=== PATIENT | female | born 1955 | race African-American/Black ===

== ENCOUNTER 2017-09-22 02:57 | Inpatient (IN) | payer OTHER ==
[~2017-09-22] VITALS: Ht 154.9 cm; Wt 48.8 kg
--- NOTE | 2017-09-22 03:10 | NUR ---
TELE/RN NOTES RECEIVED PT. FROM [facility] VIA [employer]. PT. IS AWAKE, ALERT AND ORIENTED X3. BREATHING EVEN AND UNLABORED ON ROOM AIR. NO SOB, RESPIRATORY DISTRESS OR COMPLAINTS OF PAIN NOTED AT THIS TIME.PT. DENIES FEELING LIGHTHEADED OR DIZZY AT THIS TIME. ORIENTED PT. TO ROOM. PLACED EXTERNAL DIRECTOR OF PUBLIC SAFETY ON PT. CURRENT RHYTHM = SINUS RHYTHM HR 72. PT. WITH LEFT AC 18 GAUGE IV SALINE LOCK PRESENT, PATENT AND INTACT. WILL CALL [facility] DIRECTOR DESIGN TO NOTIFY THAT PT. IS HERE AND AWAIT ADMITTING ORDERS. BED LOCKED AND IN LOWEST POSITION, SIDE RAILS UP X2, BED ALARM ON, CALL LIGHT WITHIN REACH, WILL CONTINUE TO MONITOR.
--- NOTE | 2017-09-22 03:15 | NUR ---
TELE/RN NOTES PT. REFUSING BODY CHECK. PT. STATES SHE HAS NO OPEN WOUNDS AND DOES NOT WANT A BODY CHECK. WILL ATTEMPT BODY CHECK AGAIN AT A LATER TIME. WILL CONTINUE TO MONITOR.
--- NOTE | 2017-09-22 03:45 | NUR ---
TELE/RN NOTES CALLED [facility] [employer]ATER [employer] PAPER SERVICE TO NOTIFY DR. HILLS THAT PT. ARRIVED. MD WAS PAGED AND DID NOT ANSWER, WILL AWAIT FOR MD TO CALL BACK. WILL CONTINUE TO MONITOR.
--- NOTE | 2017-09-22 03:56 | NUR ---
TELE/RN NOTES SPOKE WITH [facility] RAILCAR BRAKE OPERATOR DR. HILLS. NOTIFIED HIM OF PT. ARRIVAL AND PER PT. TAKES NO HOME MEDICATIONS. PT. VITAL SIGNS STABLE. PT. DENIES FEELING LIGHTHEADED OR DIZZY AT THIS TIME. PER DR. HILLS NEW ORDERS: ADMIT TO TELE FOR SYNCOPE, CBC AND BMP IN AM, START IV NORMAL SALINE @ 100ML/HR. WILL CARRY OUT ORDERS. WILL CONTINUE TO MONITOR.
[2017-09-22 04:00] VITALS: BP 104/72
[2017-09-22] MEDS ORDERED: IV NS 0.9% 1,000 ML BAG IV PRN (04:00)
--- NOTE | 2017-09-22 04:45 | NUR ---
TELE/RN NOTES SPOKE WITH [facility] PROGRAM DIRECTOR AIR TALENT DR. HILLS TO CLARIFY PT. DIET ORDER. PER DR. HILLS NEW ORDER: REGULAR DIET. WILL CARRY OUT ORDER. WILL CONTINUE TO MONITOR.
--- NOTE | 2017-09-22 06:09 | NUR ---
TELE/RN NOTES PT. IS LYING IN BED RESTING. BREATHING EVEN AND UNLABORED ON ROOM AIR. NO SOB, RESPIRATORY DISTRESS OR COMPLAINTS OF PAIN NOTED AT THIS TIME. PT. WITH EXTERNAL GUEST SERVICE TEAM LEADER ON CURRENT RHYTHM = SINUS RHYTHM HR 60. PT. WITH LEFT AC 18 GAUGE PERIPHERAL IV PRESENT, PATENT AND INTACT ADMINISTERING TO PT. NS @ 100ML/HR. ALL PT. NEEDS MET. BED LOCKED AND IN LOWEST POSITION, SIDE RAILS UP X2, BED ALARM ON, CALL LIGHT WITHIN REACH, WILL ENDORSE TO DAYSHIFT NURSE FOR CONTINUITY OF CARE.
[2017-09-22 06:46] LABS: BASOPHILS % (AUTO) 0.5 % (0.0-2.0); EOSINOPHILS % (AUTO) 0.7 % (0.0-6.0); HEMATOCRIT 35 % (33-45); HEMOGLOBIN 11.3 g/dL (11.5-14.8); LYMPHOCYTES % (AUTO) 36.3 % (20.0-44.0); MEAN CORPUSCULAR HEMOGLOBIN 27 PG (26.0-33.0); MEAN CORPUSCULAR HGB CONC 33 g/dl (31.0-36.0); MEAN CORPUSCULAR VOLUME 82 fL (82-100); MONOCYTES # (AUTO) 0.5 /CMM (0.1-1.30); MONOCYTES % (AUTO) 9.8 % (2.0-12.0); NEUTROPHILS # (AUTO) 2.9 /CMM (1.8-8.9); NEUTROPHILS % (AUTO) 52.7 % (43.0-81.0); PLATELET COUNT (AUTO) 159 /CMM (150-450); RDW COEFFICIENT OF VARIATION 14.5 (11.5-15.0); RED BLOOD CELL COUNT(AUTO) 4.21 MIL/uL (4.0-5.2); WHITE BLOOD COUNT (AUTO) 5.4 K/uL (4.3-11.0)
[2017-09-22] MEDS ORDERED: IV NS 0.9% 1,000 ML IV PRN (07:30)
--- NOTE | 2017-09-22 07:30 | NUR ---
TELE/RN OPENING NOTE PATIENT RECEIVED IN BED ALERT AND ORIENTED X4. RESPIRATION REGULAR AND UNLABORED. DENIES SOB, PAIN AT THIS TIME. ON TELE WITH SINUS BRADYCARDIA AT 59. IN NO APPARENT DISTRESS. LAC G18 PATENT AND IV INFUSING WITH NO S/SX INFILTRATION. SIDE RAIL X2 UP. BED LOW AND LOCKED. CALL LIGHT WITHIN REACH. WILL CONTINUE TO MONITOR.
[2017-09-22 07:42] LABS: CALCIUM, SERUM 9.5 mg/dL (8.5-10.1); CREATININE 1.8 mg/dL (0.6-1.3); POTASSIUM 3.9 mmol/L (3.5-5.1)
[2017-09-22 08:00] VITALS: BP 101/72
[2017-09-22 10:22] LABS: IRON, SERUM 47 ug/dl (50-175); TOTAL IRON BINDING CAPACITY 249 ug/dl (250-450)
--- NOTE | 2017-09-22 10:30 | NUR ---
TELE/RN SKIN ASSESSMENT SKIN ASSESSMENT DONE EXCEPT HEAD. PATIENT REFUSED TO REMOVE HER WIG FOR SKIN ASSESSMENT DESPITE EXPLAINING RISKS AND BENEFITS X3.
[2017-09-22 10:36] LABS: CHOLESTEROL 165 mg/dL (<200); FERRITIN 271 ng/mL (8-388); HDL CHOLESTEROL 49 mg/dL (40-60); LDL 106 mg/dL (0-99); THYROID STIMULATING HORMONE 0.976 uIU/mL (0.358-3.74); TRIGLYCERIDES 80 mg/dL (30-150)
[2017-09-22 10:54] LABS: MAGNESIUM 1.6 mg/dL (1.8-2.4)
[2017-09-22 11:32] LABS: TROPONIN I < 0.017 ng/mL (0.00-0.056)
[2017-09-22 16:00] VITALS: BP 105/72
[2017-09-22] MEDS ORDERED: MAGNESIUM OXIDE 400 MG TABLET PO ONE (17:00)
[2017-09-22] MEDS: IV NS 0.9% 1,000 ML IV PRN (17:26)
[2017-09-22 17:51] LABS: ALBUMIN 3.1 g/dL (3.4-5.0); BILIRUBIN,DIRECT 0.2 mg/dL (0.0-0.2); BILIRUBIN,TOTAL 0.4 mg/dL (0.2-1.0); TOTAL PROTEIN, SERUM 6.4 g/dL (6.4-8.2)
--- NOTE | 2017-09-22 19:03 | NUR ---
CLOSING NOTE PATIENT IN BED AWAKE. ALERT AND ORIENTED X4. RESPIRATION REGULAR AND UNLABORED. DENIES SOB, PAIN. IN NO APPARENT DISTRESS. LAC G18 PATENT AND IV INFUSING WELL. SIDE RAIL UP X2. BED LOW AND LOCKED. CALL LIGHT WITHIN REACH. WILL ENDORSE TO NEWSPAPER CLIPPER.
--- NOTE | 2017-09-22 19:15 | NUR ---
MS/RN NOTES RECEIVED PT. SITTING UP IN BED AWAKE, ALERT AND ORIENTED X3. BREATHING EVEN AND UNLABORED ON ROOM AIR. NO SOB, RESPIRATORY DISTRESS OR COMPLAINTS OF PAIN NOTED AT THIS TIME. PT. WITH LEFT AC 18 GAUGE PERIPHERAL IV PRESENT, PATENT AND INTACT ADMINISTERING TO PT. NS @ 75ML/HR. BED LOCKED AND IN LOWEST POSITION, SIDE RAILS UP X2, BED ALARM ON, CALL LIGHT WITHIN REACH, WILL CONTINUE TO MONITOR.
[2017-09-22 19:54] LABS: APPEARANCE,URINE SL CLOUDY (CLEAR); BILIRUBIN,URINE NEGATIVE (NEGATIVE); BLOOD, URINE NEGATIVE Ery/uL (NEGATIVE); COLOR,URINE YELLOW (YELLOW); KETONES,URINE NEGATIVE (NEGATIVE); LEUKOCYTE ESTERASE ,URINE 2+ (NEGATIVE); NITRITE, URINE NEGATIVE (NEGATIVE); PH,URINE 5.5 (5.0-8.0); PROTEIN,URINE NEGATIVE (NEGATIVE); UGLUCOSE NEGATIVE (NEGATIVE); UROBILINOGEN,URINE 0.2 EU/dL (0.2)
[2017-09-22 19:56] LABS: BACTERIA,URINE Few /HPF (None Seen); SQUAMOUS EPITHELIAL CELL,UR Moderate /HPF (None Seen); WBC,URINE 21-50 /HPF (0-3)
[2017-09-22 20:00] VITALS: BP 101/62
--- NOTE | 2017-09-22 21:11 | NUR ---
MS/RN NOTES NOTIFIED [facility] DISCHARGE SPECIALIST DR. HILLS PT. URINALYSIS RESULTED WITH WBC 21-50. PT. IS NOT CURRENTLY RECEIVING ANY ANTIBIOTICS. PER DR. HILLS NEW ORDER: ROCEPHIN 1 GRAM IVPB DAILY. WILL CARRY OUT ORDER. WILL CONTINUE TO MONITOR.
[2017-09-22] MEDS ORDERED: CEFTRIAXONE 1 G VIAL ONE (21:53)
[2017-09-22] MEDS: CEFTRIAXONE 1 G in IV D5W 50 ML IV SCH (22:38)
--- NOTE | 2017-09-23 06:30 | NUR ---
MS/RN NOTES PT. IS LYING IN BED RESTING. BREATHING EVEN AND UNLABORED ON ROOM AIR. NO SOB, RESPIRATORY DISTRESS OR COMPLAINTS OF PAIN NOTED AT THIS TIME. PT. WITH LEFT AC 18 GAUGE PERIPHERAL IV PRESENT, PATENT AND INTACT ADMINISTERING TO PT. NS @ 75ML/HR. ALL PT. NEEDS MET. ALL DUE MEDICATIONS GIVEN. BED LOCKED AND IN LOWEST POSITION, SIDE RAILS UP X2, BED ALARM ON, CALL LIGHT WITHIN REACH, WILL ENDORSE TO DAYSHIFT NURSE FOR CONTINUITY OF CARE.
[2017-09-23 07:14] LABS: ALBUMIN 2.8 g/dL (3.4-5.0); BILIRUBIN,TOTAL 0.3 mg/dL (0.2-1.0); CALCIUM, SERUM 8.6 mg/dL (8.5-10.1); CREATININE 1.4 mg/dL (0.6-1.3); MAGNESIUM 1.4 mg/dL (1.8-2.4); PHOSPHORUS 2.1 mg/dL (2.5-4.9); POTASSIUM 3.4 mmol/L (3.5-5.1); TOTAL PROTEIN, SERUM 5.8 g/dL (6.4-8.2)
[2017-09-23 07:43] LABS: BASOPHILS % (AUTO) 0.6 % (0.0-2.0); EOSINOPHILS # (AUTO) 0.1 /CMM (0.0-0.7); EOSINOPHILS % (AUTO) 1.1 % (0.0-6.0); HEMATOCRIT 32 % (33-45); HEMOGLOBIN 10.5 g/dL (11.5-14.8); LYMPHOCYTES # (AUTO) 1.7 /CMM (0.8-4.8); LYMPHOCYTES % (AUTO) 33.1 % (20.0-44.0); MEAN CORPUSCULAR HEMOGLOBIN 27 PG (26.0-33.0); MEAN CORPUSCULAR HGB CONC 33 g/dl (31.0-36.0); MEAN CORPUSCULAR VOLUME 82 fL (82-100); MONOCYTES # (AUTO) 0.5 /CMM (0.1-1.30); MONOCYTES % (AUTO) 9.1 % (2.0-12.0); NEUTROPHILS # (AUTO) 2.9 /CMM (1.8-8.9); NEUTROPHILS % (AUTO) 56.1 % (43.0-81.0); PLATELET COUNT (AUTO) 136 /CMM (150-450); RDW COEFFICIENT OF VARIATION 14.8 (11.5-15.0); RED BLOOD CELL COUNT(AUTO) 3.87 MIL/uL (4.0-5.2); WHITE BLOOD COUNT (AUTO) 5.1 K/uL (4.3-11.0)
[2017-09-23 08:00] VITALS: BP_SYST 93; BP_DIAS 63; BP_DIAS 69
--- NOTE | 2017-09-23 08:15 | NUR ---
RN INITIAL NOTES Received pt sitting upright in bed. a/o x4, respirations are even and unlabored, not in any acute distress noted. Pt denies any pain at this time. Bilateral soda flaker are equal. IV to LAC was leaking. Will insert a new peripheral IV. Pt was seen and examined by Dr. Contreras with orders for am labs and orthostatics. Pt reports slight dizziness. Reminded pt to use the call light when assistance is needed. Reeducated pt, prior to getting up and out of bed, to sit at the edge of the bed and dangle feet to prevent orthostatic hypotension. Pt able to verbalize back. Call light left within reach.
--- NOTE | 2017-09-23 08:22 | NUR ---
RN NOTES Orthostatic Laying: BP 93/69 P70 R 18 T98.3 SPO2 99% RA Sitting: BP 105/72 P64 R18 T98.3 SPO2 99% RA Standing: BP 108/72 P66 R18 T98.2 SPO2 99%
[2017-09-23] MEDS: NEUTRA PHOS 1 POWD.PACKET PO SCH ×2 (08:55→16:05)
[2017-09-23] MEDS: Magnesium 1GM/D5W 100ML PREMIX 100 ML IV SCH ×2 (08:55→11:07)
[2017-09-23] MEDS: IV NS 0.9% 1,000 ML IV PRN (08:58)
[2017-09-23] MEDS ORDERED: POTASSIUM CHLORIDE 20 MEQ TAB.PRT.SR PO ONE (10:00)
[2017-09-23 16:00] VITALS: BP 113/81
--- NOTE | 2017-09-23 19:30 | NUR ---
RN OPEN NOTES RECEIVED PATIENT AWAKE IN BED. A/O X4. NO SIGNS OF DISTRESS OR DISCOMFORT. BREATHING EVEN AND UNLABORED. IV ACCESS IN RFA WITH NS INFUSING, PATENT AND INTACT, NO SIGNS OF REDNESS OR INFILTRATION. BED IN LOW LOCKED POSITION WITH SIDE RAILS X2. CALL LIGHT WITHIN REACH. WILL CONTINUE TO MONITOR.
--- NOTE | 2017-09-23 19:49 | NUR ---
RN CLOSING NOTES all due meds given, needs met and rendered. A/o x4, respirations are even and unlabored, not in any acute distress noted. Denies any pain or discomfort. RFA IV is intact, patent. DRessing kept clean and dry. Magnesium replace x2 done and on conntinuous fluid at 75cc/hr. Pt is ambulatory with assist, able to reposition self q2hrs. Reminded pt to use the call light when assistance is needed. Call light is left within reach. Endorsed to next shift for continuity of care.
[2017-09-23 20:00] VITALS: BP 103/69
[2017-09-23] MEDS: CEFTRIAXONE 1 G in IV D5W 50 ML IV SCH (21:36)
[2017-09-24] MEDS: IV NS 0.9% 1,000 ML IV PRN (06:36)
--- NOTE | 2017-09-24 06:41 | NUR ---
RN CLOSING NOTES PATIENT AWAKE IN BED. A/O X4. NO SIGNS OF DISTRESS OR DISCOMFORT. BREATHING EVEN AND UNLABORED. IV ACCESS IN RFA WITH NS INFUSING, PATENT AND INTACT, NO SIGNS OF REDNESS OR INFILTRATION. ALL NEEDS MET. NO SIGNIFICANT CHANGES THROUGH THE NIGHT. BED IN LOW LOCKED POSITION WITH SIDE RAILS X2. CALL LIGHT WITHIN REACH. WILL ENDORSE TO AM SHIFT FOR SANDRA.
[2017-09-24 06:43] LABS: BASOPHILS % (AUTO) 0.5 % (0.0-2.0); EOSINOPHILS # (AUTO) 0.1 /CMM (0.0-0.7); EOSINOPHILS % (AUTO) 1.4 % (0.0-6.0); HEMATOCRIT 33 % (33-45); HEMOGLOBIN 10.5 g/dL (11.5-14.8); LYMPHOCYTES # (AUTO) 1.7 /CMM (0.8-4.8); MEAN CORPUSCULAR HEMOGLOBIN 26 PG (26.0-33.0); MEAN CORPUSCULAR HGB CONC 32 g/dl (31.0-36.0); MEAN CORPUSCULAR VOLUME 82 fL (82-100); MONOCYTES # (AUTO) 0.5 /CMM (0.1-1.30); MONOCYTES % (AUTO) 11.4 % (2.0-12.0); NEUTROPHILS # (AUTO) 2.4 /CMM (1.8-8.9); NEUTROPHILS % (AUTO) 50.7 % (43.0-81.0); PLATELET COUNT (AUTO) 145 /CMM (150-450); RDW COEFFICIENT OF VARIATION 15.2 (11.5-15.0); WHITE BLOOD COUNT (AUTO) 4.7 K/uL (4.3-11.0)
[2017-09-24 07:12] LABS: ALBUMIN 2.6 g/dL (3.4-5.0); BILIRUBIN,TOTAL 0.2 mg/dL (0.2-1.0); CALCIUM, SERUM 8.4 mg/dL (8.5-10.1); CREATININE 1.2 mg/dL (0.6-1.3); MAGNESIUM 1.6 mg/dL (1.8-2.4); PHOSPHORUS 2.7 mg/dL (2.5-4.9); TOTAL PROTEIN, SERUM 5.6 g/dL (6.4-8.2)
[2017-09-24 08:00] VITALS: BP 112/74
[2017-09-24] MEDS ORDERED: ERGOCALCIFEROL (VITAMIN D 2) 50,000 UNIT CAPSULE PO SCH (11:30)
[2017-09-24] MEDS ORDERED: CEPH-570 PO (11:49)
[2017-09-24] MEDS: Magnesium 1GM/D5W 100ML PREMIX 100 ML IV SCH ×2 (12:11→15:20)
[2017-09-24 16:00] VITALS: BP 119/80
--- NOTE | 2017-09-24 17:15 | NUR ---
RN NOTES: PATIENT DISCHARGED PER JEREMY ADHIKARI'S ORDERS. VS WNL . NONLABORED BREATHING NOTED ON ROOM AIR. PATIENT ABLE TO AMBULATE WELL WITH PT. - FOR ORTHOSTATIC HYPOTENTION. IV LINE REMOVED. PRESCRIPTION GIVEN TO PATIENT. PATIENT REFUSED FLU AND PNA VACCINE WELL A FULL SKIN ASSESSMENT PRIOR TO DISCHARGE. BENEFITS AND RISKS EXPLAINED TO PATIENT. PATIENT STILL REFUSED AND VERBALIZED UNDERSTANDING. ALL VALUABLES GIVEN TO PATIENT INCULDING 54 DOLLAR WITNESS BY JEREMY CORBETT. PATIENT LEFT VIA TAXI VOUCHER TO HOME IN [place].
== END 2017-09-24 17:27 | disposition home health service (06) | DRG 463 ==
LOC: TELE 02:57 → MED 09-23 10:07
PROVIDERS: ADMIT Nurse Practitioner Acute Care; ATTEND Nurse Practitioner Acute Care
DX: N39.0 Urinary tract infection, site not specified (principal); N17.0 Acute kidney failure with tubular necrosis; E83.42 Hypomagnesemia; E86.0 Dehydration; Z87.891 Personal history of nicotine dependence; D63.8 Anemia in other chronic diseases classified elsewhere; F12.11 Cannabis abuse, in remission; M48.061 Spinal stenosis, lumbar region without neurogenic claudication; M43.16 Spondylolisthesis, lumbar region; E83.39 Other disorders of phosphorus metabolism
CPT/HCPCS: 36415; 72131-TC; 80048-TC; 80053-TC; 80061-TC; 80076-TC; 81000-TC; 82306; 82550-TC; 82728-TC; 83540-TC; 83735-TC; 84100-TC; 84439-TC; 84443-TC; 84484-TC; 85025-TC; 87081-TC; 87086-TC; 93307-TC; 93880-TC; J0696; J3475; J7030; J7060

== ENCOUNTER 2017-10-09 09:02 | Emergency (ER) | payer OTHER ==
[~2017-10-09] VITALS: Ht 154.9 cm; Wt 47.6 kg
[~2017-10-09 09:02] MED LIST: CEPH-570 PO
[2017-10-09 09:11] VITALS: BP 103/72
[2017-10-09 10:12] LABS: APPEARANCE,URINE CLOUDY (CLEAR); BILIRUBIN,URINE 1+ (NEGATIVE); BLOOD, URINE NEGATIVE Ery/uL (NEGATIVE); COLOR,URINE YELLOW (YELLOW); KETONES,URINE NEGATIVE (NEGATIVE); LEUKOCYTE ESTERASE ,URINE 1+ (NEGATIVE); NITRITE, URINE NEGATIVE (NEGATIVE); PH,URINE 5.5 (5.0-8.0); PROTEIN,URINE TRACE mg/dl (NEGATIVE); UGLUCOSE NEGATIVE (NEGATIVE); UROBILINOGEN,URINE 0.2 EU/dL (0.2)
[2017-10-09 10:25] LABS: BACTERIA,URINE Few /HPF (None Seen); RBC,URINE 0-2 /HPF (0-2)
[2017-10-09 10:26] LABS: SQUAMOUS EPITHELIAL CELL,UR Moderate /HPF (None Seen)
== END 2017-10-09 10:07 | disposition home or self-care (01) ==
LOC: ER 09:05
DX: Z00.8 Encounter for other general examination (principal); J45.909 Unspecified asthma, uncomplicated
CPT/HCPCS: 81001; 87086; 99284; A4606; Z7610; 81000-TC